=== PATIENT | female | born 1980 | race Caucasian/White ===

== ENCOUNTER → 2016-03-13 | Outpatient (CLI) | payer OTHER ==
[~2016-03-13] MED LIST: ACET-1256 PO; ATEN50TA8 PO; CHOL20009 PO; HYDR-5688 PO; LORA-741 PO; MISCCAP80 PO; PRLSR20 PO; SERT50TA PO
[2016-03-13 12:15] LABS: BASO % 0.6 %; BASO ABS # 0.07 K/uL (0-0.2); COMPLETE YES; EOS % 4.9 %; HEMATOCRIT 39.6 % (37-47); IG% 0.4 %; LYMPH % 30.3 %; LYMPH ABS # 3.55 K/uL (1.2-3.4); MEAN CORPUSCULAR HGB CONC 32.6 g/dl (32-36); MEAN PLATELET VOLUME 9.5 fL (7.4-10.4); MONO % 8.6 %; NEUT % 55.2 %; PLATELET COUNT 402 K/uL (130-400); RED BLOOD COUNT 4.77 M/uL (4.2-5.4); WHITE BLOOD COUNT 11.72 K/uL (4.8-10.8)
[2016-03-13 13:42] LABS: ALKALINE PHOSPHATASE 91 U/L (45-117); ALT/SGPT 33 U/L (12-78); AST/SGOT 11 U/L (15-37); BLOOD UREA NITROGEN 12 mg/dl (7-18); BUN/CREATININE RATIO 18.6 (10-20); CALCIUM 9.4 mg/dl (8.5-10.1); CARBON DIOXIDE 26 mmol/L (21-32); CHLORIDE 104 mmol/L (98-107); CREATININE 0.66 mg/dl (0.60-1.20); FERRITIN 25.1 ng/ml (8.0-388.0); GLUCOSE 85 mg/dl (70-99); POTASSIUM 4.4 mmol/L (3.5-5.1); SODIUM 138 mmol/L (136-145); TOTAL IRON BINDING CAPACITY 377 mcg/dl (250-450)
== END | disposition home or self-care (01) ==
LOC: C.LABPVFM 10:29
PROVIDERS: ATTEND Nurse Practitioner
DX: C18.2 Malignant neoplasm of ascending colon (principal)

== ENCOUNTER → 2016-04-10 | Outpatient (CLI) | payer OTHER ==
[2016-04-10 13:44] LABS: ESTIMATED AVERAGE GLUCOSE 105 mg/dl; HA1C FLAG Normal (Normal)
[2016-04-10 13:45] LABS: LYME DISEASE AB IGG NEG (NEG)
[2016-04-10 13:46] LABS: LYME DISEASE AB IGM NEG (NEG)
[2016-04-11 15:50] LABS: ALBUMIN 4.4 G/DL (3.8-4.8); GAMMA GLOBULIN 0.9 G/DL (0.8-1.7); IMMUNOFIXATION IGA SERUM 257 MG/DL (81-463); IMMUNOFIXATION IGG SERUM 912 MG/DL (694-1618); IMMUNOFIXATION IGM SERUM 203 MG/DL (48-271); TOTAL PROTEIN 7.3 G/DL (6.2-8.3)
[2016-04-12 17:35] LABS: COLLECTION SAMPLE Venous; LEAD BLOOD <1 mcg/dL (<5)
== END | disposition home or self-care (01) ==
LOC: C.LABPVFM 09:42
PROVIDERS: ATTEND Psychiatry & Neurology Neurology
DX: R53.83 Other fatigue (principal); R41.3 Other amnesia; G62.9 Polyneuropathy, unspecified

== ENCOUNTER → 2016-04-21 | Outpatient (CLI) | payer OTHER ==
[~2016-04-21] MED LIST changes: +GADAVIST IV PRN
--- NOTE | 2016-04-21 10:25 | DIAGNOSTIC IMAGING REPORT ---
MRI OF THE BRAIN WITHOUT AND WITH IV CONTRAST CLINICAL HISTORY: Facial pain, memory loss, fatigue, headaches, history of colon carcinoma. COMPARISON STUDY: No previous studies for comparison. TECHNIQUE: MRI of the brain was performed from the vertex to the skull base utilizing various T1 and T2 weighted sequences. Following the IV administration of 10 mL of Gadavist contrast, additional enhanced images were obtained. FINDINGS: Sagittal T1, axial diffusion, proton density and T2 weighted axial, coronal FLAIR, and pre and post axial T1-weighted images were acquired. These were supplemented with post gadolinium coronal T1 weighted images. The trigeminal protocol was utilized. 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 Axial diffusion-weighted images reveal no evidence of acute or subacute infarction. There is no evidence of ventricular dilatation. Proton density T2-weighted and FLAIR images reveal no significant intraparenchymal signal abnormalities. There are no abnormal flow voids. There is no evidence of pathologic enhancement. No trigeminal nerve lesions are visualized. IMPRESSION: 1 cm pineal cyst. Otherwise unremarkable MRI of the brain. Electronically signed by: Vj Jason M.D. 04/21/2016 10:24 AM Dictated Date/Time: 04/21/2016 10:12 AM
== END | disposition home or self-care (01) ==
LOC: C.MRIBC 09:03
PROVIDERS: ATTEND Psychiatry & Neurology Neurology
DX: G62.9 Polyneuropathy, unspecified (principal); R51 Headache; E34.8 Other specified endocrine disorders

== ENCOUNTER → 2016-05-11 | Outpatient (CLI) | payer OTHER ==
[~2016-05-11] MED LIST changes: -GADAVIST IV PRN; +OPTIRAY 320 IV PRN
--- NOTE | 2016-05-11 14:06 | DIAGNOSTIC IMAGING REPORT ---
CT OF THE CHEST WITH IV CONTRAST CLINICAL HISTORY: COLON CA COMPARISON STUDY: 09/08/2015 TECHNIQUE: Following the IV administration of 93 mL of Optiray-320, CT of the thorax was performed from the thoracic inlet to the lung bases. Images are reviewed in the axial, sagittal, and coronal planes. IV contrast was administered without complication. CT DOSE: 1652.86 mGycm FINDINGS: Thyroid: Imaged portions of the thyroid gland are normal in appearance. Thoracic aorta: The thoracic aorta is normal in course and caliber, noting standard 3-vessel arch anatomy. No aneurysm or dissection is seen. Pulmonary vasculature: The pulmonary trunk is normal in caliber. There are no central filling defects identified to suggest pulmonary embolus. Note that this examination was not protocoled for the evaluation of pulmonary emboli. HEART: The heart is normal in size and configuration, without pericardial effusion. Lungs and pleural spaces: There are no pleural effusions. There is no focal pulmonary consolidation. There is a stable 2 mm right upper lobe pulmonary nodule as visualized in image #[id number]. There is a stable 2 mm left apical pulmonary nodule as visualized in image #[id number]. Mediastinum: There is no mediastinal lymphadenopathy. April: Clear. Axilla: There is no evidence of pathologic axillary lymphadenopathy Upper abdomen: There is hepatic steatosis Skeletal structures: There are no lytic or blastic osseous lesions. IMPRESSION: 1. No evidence of intrathoracic metastatic disease 2. Hepatic steatosis 3. Stable 2 mm right upper lobe and left upper lobe pulmonary nodules. These are in all likelihood benign Electronically signed by: Vj Jason M.D. 05/11/2016 2:05 PM Dictated Date/Time: 05/11/2016 2:01 PM
--- NOTE | 2016-05-11 14:25 | DIAGNOSTIC IMAGING REPORT ---
CT ABD/PELVIS IV AND ORAL CONT CLINICAL HISTORY: COLON CA COMPARISON STUDY: 09/08/2015 TECHNIQUE: Following the IV administration of 93 mL of Optiray-320, CT scan of the abdomen and pelvis was performed from the lung bases to the proximal femurs. Images are reviewed in the axial, sagittal, and coronal planes. IV contrast was administered without complication. CT DOSE: FINDINGS: Lower chest: The heart is normal in size and configuration, without pericardial effusion. The lung bases and pleural spaces are clear. Liver: There is hepatic steatosis. No focal masses are visualized. The portal vein appears patent. Gallbladder: Unremarkable. Spleen: Normal in size and attenuation. Pancreas: Unremarkable. Adrenal glands: Unremarkable. Kidneys: There is symmetric renal cortical enhancement. The kidneys are normal in size without hydronephrosis. Bowel: There are no transition zones indicate bowel obstruction. No acute inflammatory changes are visualized. There are postsurgical changes of a right hemicolectomy. Peritoneum: There is no intraperitoneal free air or abdominal ascites. Vasculature: The abdominal aorta is normal in course and caliber. Adenopathy: None. Pelvic viscera: The bladder, and pelvic viscera are unremarkable. Skeletal structures: No destructive osseous lesions are seen. IMPRESSION: 1. No evidence of metastatic disease in the abdomen or pelvis 2. Postsurgical changes 3. Hepatic steatosis Electronically signed by: Vj Jason M.D. 05/11/2016 2:24 PM Dictated Date/Time: 05/11/2016 1:45 PM
== END | disposition home or self-care (01) ==
LOC: C.CTS 12:50
PROVIDERS: ATTEND Nurse Practitioner Family
DX: C18.2 Malignant neoplasm of ascending colon (principal); D50.9 Iron deficiency anemia, unspecified

== ENCOUNTER → 2016-05-16 | Outpatient (CLI) | payer OTHER ==
[~2016-05-16] MED LIST changes: -OPTIRAY 320 IV PRN; +SERT-234 PO
== END | disposition home or self-care (01) ==
LOC: C.LABPVFM 07:40
PROVIDERS: ATTEND Nurse Practitioner
DX: R19.7 Diarrhea, unspecified (principal); A04.7 Enterocolitis due to Clostridium difficile

== ENCOUNTER → 2016-06-09 | Day surgery (SDC) | payer OTHER ==
[2016-05-31 09:07] VITALS: Ht 165.1 cm; Wt 106.8 kg
[~2016-06-09] VITALS: Ht 165.1 cm; Wt 106.8 kg
[~2016-06-09] MED LIST changes: +ATROPINE SULFATE 0.1 MG/ML 5ML SYR IV PRN; +CLINDAMYCIN PHOS 150 MG/ML 2 ML VIAL IV SCH; +EpHEDrine SULFATE INJ 50 MG/ML AMP IV PRN; +FENTANYL CITRATE INJ 50 MCG/1 ML 2 ML VIAL IV PRN; +FENTANYL CITRATE INJ 50 MCG/1 ML 2 ML VIAL ONE; +HYDROCODONE/ACETAMOPHEN 5/325MG TAB PO PRN; +IBUPROFEN 600 MG TAB PO PRN; +LACTATED RINGER'S 1000ML 1,000 ML IV SCH; +LIDOCAINE HCL 1% 20 ML VIAL ONE; +LIDOCAINE HCL 2% 2 ML VIAL (20MG/ML) ONE; +MIDAZOLAM HCL 1 MG/ML 2ML VIAL ONE; +ONDANSETRON INJ 2 MG/ML 2 ML VIAL IV PRN; +ONDANSETRON INJ 2 MG/ML 2 ML VIAL ONE; +PROPOFOL IV EMULSION 10 MG/ML 20 ML VIAL IV ONE; +SODIUM CHLORIDE 0.9% 1000ML 1,000 ML IV SCH
--- NOTE | 2016-06-09 08:41 | History & Physical Bridge - SC ---
H&P Re-Evaluation Bridge Note: I have examined the patient, reviewed the History & Physical and in the interval since the performance of the History & Physical I have noted the following changes of clinical significance: No changes noted
--- NOTE | 2016-06-09 08:44 | Discharge Instructions-SurgCtr ---
Discharge Instructions Date of Service Jun 09, 2016. Visit Reason for Visit: Port Catheter In Place, History Of Colon Cancer Discharge Discharge Diagnosis / Problem: port removal Discharge Goals Goal(s): Decrease discomfort, Improve function Activity Recommendations Activity Limitations: as noted below Lifting Limitations: gradually increase as tolerated Exercise/Sports Limitations: until after follow-up appointment May Resume Sexual Activity: when tolerated Shower/Bathe: tomorrow Driving or Machine Use: resume 1 day after discharge SPECIAL CARE INSTRUCTIONS: * Cover incisions and change daily for comfort/drainage. * May use ibuprofen for pain as tolerated. * Expect some swelling and bruising. Call your doctor if: * Temperature above 101 degrees * Pain not relieved by pain medicine ordered * There is increased drainage or redness from any incision * You have any unanswered questions or concerns [phone]. FOLLOW UP VISIT: If not already scheduled, please call the office for a follow-up visit. for 2 weeks- sutures to be removed OFFICE PHONE NUMBER: Dr. Bocanegra Office Anesthesia . Post Anesthesia Instructions: If you have had General Anesthesia or IV Sedation: * Do not drive today. * Resume driving when surgeon permits. * Do not make important decisions or sign legal documents today. * Call surgeon for: 1. Temperature elevations greater than 101 degrees F. 2. Uncontrollable pain. 3. Excessive bleeding. 4. Persistent nausea and vomiting. 5. Medication intolerance (nausea, vomiting or rash). * For nausea and vomiting use only clear liquids such as: tea, soda, bouillon until nausea subsides, then gradually increase diet as tolerated. * If you have any concerns or questions, call your surgeon's office. If physician is unavailable and it is an emergency, call 911 or go to the nearest emergency room. . Diet Recommendations Home Diet: resume previous diet Pending Studies Studies pending at discharge: no Medical Emergencies . Who to Call and When: Medical Emergencies: If at any time you feel your situation is an emergency, please call 911 immediately. . Non-Emergent Contact Non-Emergency issues call your: Primary Care Provider, Surgeon . . "Provider Documentation" section prepared by Osbaldo Bocanegra. .
--- NOTE | 2016-06-09 09:11 | [facility] Post Operative Brief Note ---
Immediate Operative Summary Operative Date Jun 09, 2016. Pre-Operative Diagnosis History of Colon Cancer Post-Operative Diagnosis Same Procedure(s) Performed Removal Of A-Port Surgeon Dr. Bocanegra [employer] Surgeon(s) None Estimated Blood Loss 10 ml Findings port Specimens A.) Explanted A-Port Anesthesia local/ sedation Complication(s) None Disposition Recovery Room / PACU
--- NOTE | 2016-06-09 09:30 | OPERATIVE REPORT ---
DATE OF OPERATION: 06/09/2016 NAME OF OPERATION: Port removal. PREOPERATIVE DIAGNOSIS: History of colon cancer with port in place. POSTOPERATIVE DIAGNOSIS: Same. STAFF SURGEON: Dr. Bocanegra. ANESTHESIA: 1% plain lidocaine with sedation. DESCRIPTION OF PROCEDURE: The patient was brought in the operating room and placed on the operating table in supine position. Her left chest was prepped and draped in usual fashion. A 1% plain lidocaine was used to anesthetize the skin and subcutaneous tissue on the left chest area at the site of her previous scar. Incision then made carrying dissection down identifying the port, dissecting the port from surrounding tissue and oversewn the tunnel using 2-0 chromic catgut suture. The deep tissue was then reapproximated using 2-0 chromic catgut suture and then the skin reapproximated using 4-0 nylon suture. Dressing applied and the patient transferred to recovery room in stable condition. I attest to the content of the Intraoperative Record and any orders documented therein. Any exceptio ns are noted below.
[2016-06-09 10:07] VITALS: BP 106/69; PULSE 64; TEMP 36.7; O2SAT 99
--- NOTE | 2016-06-09 10:11 | Anesthesia Progress Nt - [facility] ---
Anesthesia Post Op Note Date & Time Jun 09, 2016 at 10:11 Vital Signs Pain Intensity: 0 Vital Signs Past 12 Hours Date Time Temp Pulse Resp B/P Pulse Ox O2 Delivery O2 Flow Rate FiO2 06/09/16 09:49 70 18 101/64 96 Room Air 06/09/16 09:43 70 24 06/09/16 09:43 72 24 95 06/09/16 09:42 68 23 96 06/09/16 09:42 69 23 06/09/16 09:41 37.2 96 Room Air 06/09/16 09:39 120/73 06/09/16 09:37 75 27 97 06/09/16 09:37 76 27 06/09/16 09:35 112/62 06/09/16 09:32 88 20 96 06/09/16 09:32 87 20 06/09/16 09:31 83 23 98 06/09/16 09:31 82 23 06/09/16 09:29 133/68 06/09/16 09:26 83 23 06/09/16 09:26 83 23 97 06/09/16 09:25 73 24 98 06/09/16 09:25 74 24 06/09/16 09:25 73 24 98 06/09/16 09:25 74 24 06/09/16 09:24 113/67 06/09/16 09:24 113/67 06/09/16 09:20 76 23 94 06/09/16 09:20 76 23 06/09/16 09:20 76 23 94 06/09/16 09:20 76 23 06/09/16 09:19 73 26 110/69 95 06/09/16 09:19 73 26 06/09/16 09:14 81 22 06/09/16 09:14 83 22 107/65 92 06/09/16 09:14 37.0 84 12 117/65 92 Mask 7 06/09/16 07:37 37.4 73 18 128/83 97 Room Air Notes Mental Status: alert / awake / arousable, participated in evaluation Pt Amnestic to Procedure: Yes Nausea / Vomiting: adequately controlled Pain: adequately controlled Airway Patency, RR, SpO2: stable & adequate BP & HR: stable & adequate Hydration State: stable & adequate Anesthetic Complications: no major complications apparent
== END | disposition home or self-care (01) ==
LOC: X.SURG 07:28
PROVIDERS: ATTEND Surgery
DX: Z45.2 Encounter for adjustment and management of vascular access device (principal); Z85.038 Personal history of other malignant neoplasm of large intestine; D64.9 Anemia, unspecified; F41.8 Other specified anxiety disorders; K21.9 Gastro-esophageal reflux disease without esophagitis; I47.1 Supraventricular tachycardia; G62.9 Polyneuropathy, unspecified; M13.0 Polyarthritis, unspecified; I07.1 Rheumatic tricuspid insufficiency; E55.9 Vitamin D deficiency, unspecified; Z82.49 Family history of ischemic heart disease and other diseases of the circulatory system; Z87.891 Personal history of nicotine dependence; Z79.899 Other long term (current) drug therapy

== ENCOUNTER → 2016-07-04 | Outpatient (CLI) | payer OTHER ==
[~2016-07-04] MED LIST changes: -ATROPINE SULFATE 0.1 MG/ML 5ML SYR IV PRN; -CLINDAMYCIN PHOS 150 MG/ML 2 ML VIAL IV SCH; -EpHEDrine SULFATE INJ 50 MG/ML AMP IV PRN; -FENTANYL CITRATE INJ 50 MCG/1 ML 2 ML VIAL IV PRN; -FENTANYL CITRATE INJ 50 MCG/1 ML 2 ML VIAL ONE; -HYDROCODONE/ACETAMOPHEN 5/325MG TAB PO PRN; -IBUPROFEN 600 MG TAB PO PRN; -LACTATED RINGER'S 1000ML 1,000 ML IV SCH; -LIDOCAINE HCL 1% 20 ML VIAL ONE; -LIDOCAINE HCL 2% 2 ML VIAL (20MG/ML) ONE; -MIDAZOLAM HCL 1 MG/ML 2ML VIAL ONE; -ONDANSETRON INJ 2 MG/ML 2 ML VIAL IV PRN; -ONDANSETRON INJ 2 MG/ML 2 ML VIAL ONE; -PROPOFOL IV EMULSION 10 MG/ML 20 ML VIAL IV ONE; -SODIUM CHLORIDE 0.9% 1000ML 1,000 ML IV SCH
== END | disposition home or self-care (01) ==
LOC: C.LABPVFM 14:50
PROVIDERS: ATTEND Nurse Practitioner
DX: E55.9 Vitamin D deficiency, unspecified (principal); G62.0 Drug-induced polyneuropathy

== ENCOUNTER → 2016-08-29 | Outpatient (CLI) | payer OTHER ==
[2016-08-29 12:20] LABS: BASO % 0.4 %; BASO ABS # 0.05 K/uL (0-0.2); EOS % 2.8 %; HEMATOCRIT 40.9 % (37-47); IG% 0.3 %; MEAN CELL VOLUME 84.3 fL (80-100); MEAN CORPUSCULAR HEMOGLOBIN 28.2 pg (25-34); MEAN CORPUSCULAR HGB CONC 33.5 g/dl (32-36); MEAN PLATELET VOLUME 9.1 fL (7.4-10.4); MONO % 7.1 %; NEUT % 64.4 %; PLATELET COUNT 433 K/uL (130-400); RED BLOOD COUNT 4.85 M/uL (4.2-5.4); WHITE BLOOD COUNT 11.62 K/uL (4.8-10.8)
[2016-08-29 12:21] LABS: COMPLETE YES
[2016-08-29 13:07] LABS: ALT/SGPT 56 U/L (12-78); AST/SGOT 33 U/L (15-37); BLOOD UREA NITROGEN 10 mg/dl (7-18); BUN/CREATININE RATIO 12.9 (10-20); CALCIUM 9.3 mg/dl (8.5-10.1); CARBON DIOXIDE 25 mmol/L (21-32); CHLORIDE 108 mmol/L (98-107); CREATININE 0.77 mg/dl (0.60-1.20); GLUCOSE 91 mg/dl (70-99); POTASSIUM 4.2 mmol/L (3.5-5.1); SODIUM 138 mmol/L (136-145)
[2016-08-29 13:17] LABS: ALB/GLOB RATIO 0.9 (0.9-2); ALKALINE PHOSPHATASE 73 U/L (45-117); RHEUMATOID FACTOR < 10.0 U/mL (0-15)
[2016-08-29 13:46] LABS: LYME DISEASE AB IGG NEG (NEG)
[2016-08-29 13:49] LABS: LYME DISEASE AB IGM NEG (NEG)
== END | disposition home or self-care (01) ==
LOC: C.LABPVFM 09:32
PROVIDERS: ATTEND Nurse Practitioner
DX: R53.83 Other fatigue (principal); R41.3 Other amnesia; R76.8 Other specified abnormal immunological findings in serum; M25.50 Pain in unspecified joint; R00.2 Palpitations

== ENCOUNTER → 2016-09-05 | Outpatient (CLI) | payer OTHER ==
[2016-09-05 13:08] LABS: BASO % 0.7 %; BASO ABS # 0.09 K/uL (0-0.2); COMPLETE YES; EOS % 3.6 %; HEMATOCRIT 39.6 % (37-47); IG% 0.5 %; LYMPH % 30.6 %; LYMPH ABS # 4.12 K/uL (1.2-3.4); MEAN CORPUSCULAR HEMOGLOBIN 27.9 pg (25-34); MEAN CORPUSCULAR HGB CONC 32.8 g/dl (32-36); MEAN PLATELET VOLUME 9.3 fL (7.4-10.4); MONO % 6.5 %; NEUT % 58.1 %; PLATELET COUNT 391 K/uL (130-400); RED BLOOD COUNT 4.66 M/uL (4.2-5.4); WHITE BLOOD COUNT 13.48 K/uL (4.8-10.8)
[2016-09-05 15:05] LABS: URINE APPEARANCE CLEAR (CLEAR); URINE BILIRUBIN NEG (NEG); URINE COLOR YELLOW; URINE EPITHELIAL CELL AUTO 20-30 /lpf (0-5); URINE NITRITE NEG (NEG); URINE PH 5.5 (4.5-7.5); URINE SPECIFIC GRAVITY 1.019 (1.000-1.030); UROBILINOGEN NEG (NEG)
[2016-09-05 15:08] LABS: MANUAL MICROSCOPIC REQUIRED? NO; REVIEW REQ? NO
[2016-09-12 04:32] LABS: ANTI-CENTROMERE AB <1.0 NEG AI (<1.0 NEG); ANTI-SS-A <1.0 NEG AI (<1.0 NEG); ANTI-SS-B <1.0 NEG AI (<1.0 NEG); DNA ds CRITHIDIA NEGATIVE (NEGATIVE); Sm Antibody <1.0 NEG AI (<1.0 NEG)
== END | disposition home or self-care (01) ==
LOC: C.LAB1850 11:43
PROVIDERS: ATTEND Internal Medicine Rheumatology
DX: R53.83 Other fatigue (principal); R76.8 Other specified abnormal immunological findings in serum; M25.50 Pain in unspecified joint

== ENCOUNTER → 2016-10-23 | Outpatient (CLI) | payer OTHER ==
[2016-10-23 12:17] LABS: BASO % 0.7 %; COMPLETE YES; EOS % 2.7 %; HEMATOCRIT 41.7 % (37-47); IG% 0.3 %; LYMPH % 27.8 %; LYMPH ABS # 3.76 K/uL (1.2-3.4); MEAN CELL VOLUME 85.3 fL (80-100); MEAN CORPUSCULAR HEMOGLOBIN 27.4 pg (25-34); MEAN CORPUSCULAR HGB CONC 32.1 g/dl (32-36); MEAN PLATELET VOLUME 9.7 fL (7.4-10.4); MONO % 8.1 %; NEUT % 60.4 %; PLATELET COUNT 421 K/uL (130-400); RED BLOOD COUNT 4.89 M/uL (4.2-5.4); WHITE BLOOD COUNT 13.52 K/uL (4.8-10.8)
[2016-10-23 13:04] LABS: ALT/SGPT 33 U/L (12-78); AST/SGOT 20 U/L (15-37); BLOOD UREA NITROGEN 13 mg/dl (7-18); BUN/CREATININE RATIO 19.7 (10-20); CALCIUM 9.1 mg/dl (8.5-10.1); CARBON DIOXIDE 29 mmol/L (21-32); CHLORIDE 106 mmol/L (98-107); CREATININE 0.65 mg/dl (0.60-1.20); GLUCOSE 82 mg/dl (70-99); POTASSIUM 4.2 mmol/L (3.5-5.1); SODIUM 139 mmol/L (136-145)
[2016-10-23 13:07] LABS: ALB/GLOB RATIO 1.1 (0.9-2); ALKALINE PHOSPHATASE 87 U/L (45-117)
== END | disposition home or self-care (01) ==
LOC: C.LABPVFM 09:20
PROVIDERS: ATTEND Nurse Practitioner Family
DX: C18.2 Malignant neoplasm of ascending colon (principal)

== ENCOUNTER 2016-11-21 13:59 | Emergency (ER) | payer OTHER ==
[~2016-11-21] VITALS: Ht 165.1 cm; Wt 113.9 kg
[~2016-11-21 13:59] MED LIST changes: -SERT-234 PO
[2016-11-21 14:02] VITALS: TEMP 36.7; Ht 165.1 cm; Wt 113.9 kg
[2016-11-21] MEDS ORDERED: SERT-234 PO (14:42)
[2016-11-21 15:44] LABS: ISTAT CREATININE 0.7 mg/dl (0.6-1.3); ISTAT HEMOGLOBIN 12.9 g/dl (12.0-16.0); ISTAT IONIZED CALCIUM 1.18 mmol/l (1.12-1.32)
--- NOTE | 2016-11-21 15:48 | EMERGENCY ROOM VISIT NOTE ---
ED Visit Note First contact with patient: 14:05 CHIEF COMPLAINT: Head injury, dizziness, nausea HISTORY OF PRESENT ILLNESS: This is a 36 year-old female patient presented to the emergency department 2 days after receiving a head injury when she slipped while mopping the floor. The patient states she fell backwards and hit the posterior aspect of her head and neck on a hot water heater. The patient states she was feeling well yesterday, however today she is having worsening dizziness and nausea. She states her symptoms did improve after she ate today. There was a possible brief loss of consciousness, but the episode was unwitnessed and the patient is uncertain if she passed out or not. There has been no vomiting. The patient denies vomiting, confusion, persistent headache, visual disturbances, or other associated symptoms. The patient complains of no neck pain. The patient has taken nothing for the pain. The patient rates the pain as 8/10 and dull. The patient denies bowel or bladder dysfunction. The patient denies any other injuries. REVIEW OF SYSTEMS: A 10 system review of systems was performed with positives and pertinent negatives listed in the history of present illness. All other systems were reviewed and are negative. ALLERGIES: Please see list. MEDICATIONS: Please see list. I did personally review the patient's medication list the bedside. PMH: Anxiety, SVT, GERD SOCIAL HISTORY: The patient lives locally with family. She denies drug, alcohol use. The patient does report smoking cigarettes. PHYSICAL EXAM: Vital Signs: Reviewed Nurse's notes, vital signs stable. GENERAL : This is a 36-year-old white female, in no acute distress, well-developed, well -nourished. NEURO: The patient is alert, oriented to person place and time, and coherent. Normal mini mental status exam. Negative Romberg and pronator drift. Cerebellar function intact. HEAD: Normocephalic, atraumatic. No tenderness or abnormality noted on palpation. EYES: Pupils are equal round and reactive to light and accommodation. EOMs are full and optic discs and fundi are normal. There is no swelling or discoloration of the tissue surrounding the eyes. EARS: External auditory canals clear without blood. NOSE: Patent without tenderness. No septal hematoma. FACE: No facial bone tenderness. NECK: Supple. There is no cervical spine tenderness. The patient does not have tenderness with movement of the neck. ED COURSE: I examined the patient. Discussion with the patient regarding possible CT scan versus no imaging. The patient feels comfortable with no imaging based on the CHIP criteria for head injury imaging. She states she has been feeling dizzy and does have a history of blood disorder, so we did discuss ordering lab work to ensure the patient is not significantly anemic or have significant electrolyte abnormalities. CT of his were completed and were reviewed by myself. These were without significant change. The patient was discharged home in good condition ambulatory. DIFFERENTIAL DIAGNOSIS: Closed head injury, concussion, dizziness, electrolyte abnormality, hypotension, anemia, malignancy, and others DIAGNOSIS: Concussion Problem List Medical Problems: (1) SVT (supraventricular tachycardia) Status: Chronic Current/Historical Medications Scheduled Atenolol (Tenormin), 25 MG PO HS Cholecalciferol (Vitamin D), 1 TAB PO QAM Omeprazole (Prilosec), 20 MG PO QAM Sertraline (Zoloft), 100 MG PO DAILY Scheduled PRN Acetaminophen (Tylenol), 1,000 MG PO Q6H PRN for Pain Lorazepam (Ativan), 0.5 MG PO BID PRN for Anxiety/Insomnia Allergies Coded Allergies: Erythromycin (Verified Allergy, Severe, SHORTNESS OF BREATH, 11/21/16) patient got nauseous and had some sob Neomycin (Verified Allergy, Severe, SHORTNESS OF BREATH & CHEST PAIN, 11/28) Cephalosporins (Verified Allergy, Intermediate, -HIVES, 11/21/16) Penicillins (Verified Allergy, Intermediate, HIVES AND VOMITING, 11/21/16) Latex1 -Allergic Contact Dermititis (Verified Allergy, Mild, HIVES/ITCHING , 11/21/16) Antihistamines, Loratadine-type (Verified Adverse Reaction, Intermediate, ALL ANTIHISTAMINES MAKE TACHYCARDIAC R/T SVT, 11/21/16) Aspirin (Verified Adverse Reaction, Intermediate, HEART RACES, 11/21/16) Vital Signs Date Time Temp Pulse Resp B/P (MAP) Pulse Ox O2 Delivery O2 Flow Rate FiO2 11/21/16 14:02 36.7 74 18 130/83 97 Room Air Laboratory Results Test 11/21/16 15:24 Bedside Hemoglobin 12.9 g/dl (12.0-16.0) Bedside Hematocrit 38 % (37-47) Bedside Sodium 138 mEq/L (135-144) Bedside Potassium 4.5 mEq/L (3.3-5.0) Bedside Chloride 104 mEq/L (101-112) Bedside Total CO2 25 mEq/l (24-31) Anion Gap 15.0 mmol/L (16-25) Bedside Blood Urea Nitrogen 9 mg/dl (7-18) Bedside Creatinine 0.7 mg/dl (0.6-1.3) Bedside Glucose (other) 95 mg/dl (70-99) Bedside Ionized Calcium (Juno) 1.18 mmol/l (1.12-1.32) Departure Information Impression Primary Impression: Concussion Dispostion Home / Self-Care Condition GOOD Referrals Esmer Mason C.R.N.P (PCP) Patient Instructions ED Concussion, My [facility] Additional Instructions You have been treated in the Emergency Department for a Closed Head Injury. For pain control, you can use the following [id number] medicines (if >12 yo): Ibuprofen(Motrin, Advil) may be used for fever or pain. Use 600mg every six hours as needed. Take with food. Avoid using more than 2400mg in a 24 hour period. Do not use 2400mg per day for more than three consecutive days without physician direction. Prolonged inappropriate use can lead to stomach upset or ulcers. (AND/OR) Acetaminophen(Tylenol) may be used for fever or pain. Use 1000mg every six hours as needed. Avoid using more than 3000mg in a 24 hour period. You should relax in a quiet, dark place for the rest of the day. Avoid any possible triggers including: cigarette smoke, caffeine, nicotine, chocolate, wine, beer, loud noises or music, or bright lights. You should schedule a follow-up appointment in 2-3 days with your Primary Care Provider or established Neurologist for further evaluation and treatment of your Headache. Return to the Emergency Department if your current symptoms worsen despite treatment course outlined above, or if you develop any of the following symptoms : intractable pain despite aforementioned treatment course, visual disturbances , loss of vision, unilateral weakness or facial drooping, slurring of speech, loss of coordination, or loss of consciousness. Problem Qualifiers Primary Impression: Concussion Encounter type: initial encounter Loss of consciousness presence/duration: with LOC of 30 min or less Qualified Codes: S06.0X1A - Concussion with loss of consciousness of 30 minutes or less, initial encounter
[2016-11-21 15:57] VITALS: BP 155/95; PULSE 70; O2SAT 96
== END 2016-11-21 15:58 | disposition home or self-care (01) ==
LOC: C.EDB 14:01 → C.EDD 15:58
DX: S06.0X9A Concussion with loss of consciousness of unspecified duration, initial encounter (principal); W22.09XA Striking against other stationary object, initial encounter; Y93.E5 Activity, floor mopping and cleaning; I47.1 Supraventricular tachycardia; F17.210 Nicotine dependence, cigarettes, uncomplicated

== ENCOUNTER → 2017-02-01 | Day surgery (SDC) | payer OTHER ==
[2017-01-23 10:07] VITALS: Ht 165.1 cm; Wt 116.4 kg
[~2017-02-01] VITALS: Ht 165.1 cm; Wt 116.4 kg
[~2017-02-01] MED LIST changes: +ATV/1 PO; +CYAN100020 PO; -HYDR-5688 PO; +LIDOCAINE HCL 2% 2 ML VIAL (20MG/ML) ONE; -LORA-741 PO; -MISCCAP80 PO; +PROPOFOL IV EMULSION 10 MG/ML 20 ML VIAL IV ONE; +PSYL0.524 PO; +SERT-234 PO; -SERT50TA PO; +SODIUM CHLORIDE 0.9% 500ML 500 ML IV ONE; +TURM1CAP4 PO
--- NOTE | 2017-02-01 13:39 | Endo History and Physical ---
History & Physical Date of Service: Feb 01, 2017. Chief Complaint: History of Colon cancer Referring Physician: Oziel History of Present Illness 36 yo CF who presents for colonoscopy secondary to history of colon cancer. Past Medical History Arthritis, Anxiety, Reflux, Cancer Past Surgical History Hx Cardiac Surgery: Yes (CARDIOVERSION) Hx Internal Defibrillator: No Hx Pacemaker: No Hx Abdominal Surgery: Yes (TUBAL LIGATION) Hx of Implantable Prosthesis: No Hx Post-Op Nausea and Vomiting: No Hx Cancer Surgery: Yes (COLON RESECTION WITH APPY) Hx Thoracic Surgery: No Hx Orthopedic: No Hx Urinary Tract Surgery: No Family History Polyp, IBD Social History Smoking Status: Current Every Day Smoker Hx Substance Use: No Hx Alcohol Use: No Allergies Coded Allergies: Erythromycin (Verified Allergy, Severe, SHORTNESS OF BREATH, 01/23/17) patient got nauseous and had some sob Neomycin (Verified Allergy, Severe, SHORTNESS OF BREATH & CHEST PAIN, 01/28) Cephalosporins (Verified Allergy, Intermediate, -HIVES, 01/23/17) Penicillins (Verified Allergy, Intermediate, HIVES AND VOMITING, 01/23/17) Latex1 -Allergic Contact Dermititis (Verified Allergy, Mild, HIVES/ITCHING , 01/23/17) Antihistamines, Loratadine-type (Verified Adverse Reaction, Intermediate, ALL ANTIHISTAMINES MAKE TACHYCARDIAC R/T SVT, 01/23/17) Aspirin (Verified Adverse Reaction, Intermediate, HEART RACES, 01/23/17) Current Medications Reported Home Medications Medications Dose Route/Sig Max Daily Dose Days Date Category Metamucil (Psyllium) 0.52 Gm Cap 1 Cap PO BID 01/23/17 Reported Vitamin B12 (Cyanocobalamin) 1,000 Mcg Tab 1 Tab PO QAM 01/23/17 Reported Turmeric (Turmeric (Curcuma Longa)) 500 Mg Cap 1 Cap PO QAM 01/23/17 Reported Ativan (Lorazepam) 1 Mg Tab 1 Mg PO QAM 01/23/17 Reported Ativan (Lorazepam) 1 Mg Tab 0.5 Mg PO HS 01/23/17 Reported Zoloft (Sertraline HCl) 100 Mg Tab 150 Mg PO QAM 11/21/16 Reported Vitamin D (Cholecalciferol) 2,000 Unit Tab 1 Tab PO QAM 01/26/16 Reported Prilosec (Omeprazole) 20 Mg Capcr 20 Mg PO QAM 01/26/16 Reported Tylenol (Acetaminophen) 500 Mg Tab 1,000 Mg PO Q6H PRN 03/04/15 Reported Tenormin (Atenolol) 50 Mg Tab 25 Mg PO HS 11/12/14 Reported Vital Signs Weight (Kilograms): 116.36 Height (Feet): 5 Height (Inches): 5 Date Time Temp Pulse Resp B/P (MAP) Pulse Ox O2 Delivery O2 Flow Rate FiO2 02/01/17 13:04 37 67 20 128/65 (86) 97 Room Air Physical Exam General Appearance: WD/WN, no apparent distress Respiratory/Chest: Auscultation: breath sounds normal Cardiovascular: Heart Auscultation: RRR Abdomen: Bowel Sounds: normal Inspection & Palpation: soft, non-distended, no tenderness, guarding & rebound Assessment and Plan Assessment: 36 yo CF who presents for colonoscopy secondary to history of colon cancer. Plan: Proceed with colonoscopy.
--- NOTE | 2017-02-01 14:09 | GI REPORT ---
Procedure Date: 02/01/2017 1:46 PM Procedure: Colonoscopy Indications: High risk colon cancer surveillance: Personal history of colon cancer Medicines: Monitored Anesthesia Care Complications: No immediate complications. Estimated Blood Loss: Estimated blood loss: none. Procedure: Pre-Anesthesia Assessment: - Prior to the procedure, a History and Physical was performed, and patient medications and allergies were reviewed. The patient's tolerance of previous anesthesia was also reviewed. The risks and benefits of the procedure and the sedation options and risks were discussed with the patient. All questions were answered, and informed consent was obtained. Prior Anticoagulants: The patient has taken no previous anticoagulant or antiplatelet agents. ASA Grade Assessment: II - A patient with mild systemic disease. After reviewing the risks and benefits, the patient was deemed in satisfactory condition to undergo the procedure. After I obtained informed consent, the scope was passed under direct vision. Throughout the procedure, the patient's blood pressure, pulse, and oxygen saturations were monitored continuously. The scope was introduced through the anus and advanced to the terminal ileum. The colonoscopy was performed without difficulty. The patient tolerated the procedure well. The quality of the bowel preparation was good. The terminal ileum and the rectum were photographed. Findings: There was evidence of a prior end-to-side ileo-colonic anastomosis in the ascending colon. This was patent and was characterized by healthy appearing mucosa. The anastomosis was traversed. The perianal and digital rectal examinations were normal. Impression: - Patent end-to-side ileo-colonic anastomosis, characterized by healthy appearing mucosa. - No specimens collected. Recommendation: - Resume previous diet. - Continue present medications. - Repeat colonoscopy in 3 years for surveillance. - Return to primary care physician as previously scheduled. Shahriar Irizarry DO 02/01/2017 2:08:37 PM This report has been signed electronically. Note Initiated On: 02/01/2017 1:46 PM I attest to the content of the Intraoperative Record and orders documented therein, exceptions below
--- NOTE | 2017-02-01 14:11 | Discharge Instructions ---
Endoscopy Patient Instructions Date / Procedure(s) Performed Feb 01, 2017. Colonoscopy Allergy Information Coded Allergies: Erythromycin (Verified Allergy, Severe, SHORTNESS OF BREATH, 01/23/17) patient got nauseous and had some sob Neomycin (Verified Allergy, Severe, SHORTNESS OF BREATH & CHEST PAIN, 01/28) Cephalosporins (Verified Allergy, Intermediate, -HIVES, 01/23/17) Penicillins (Verified Allergy, Intermediate, HIVES AND VOMITING, 01/23/17) Latex1 -Allergic Contact Dermititis (Verified Allergy, Mild, HIVES/ITCHING , 01/23/17) Antihistamines, Loratadine-type (Verified Adverse Reaction, Intermediate, ALL ANTIHISTAMINES MAKE TACHYCARDIAC R/T SVT, 01/23/17) Aspirin (Verified Adverse Reaction, Intermediate, HEART RACES, 01/23/17) Discharge Date / Findings Feb 01, 2017. Normal colonoscopy Medication Instructions OK to resume all medications today as prescribed Reported Home Medications Medications Dose Route/Sig Max Daily Dose Days Date Category Metamucil (Psyllium) 0.52 Gm Cap 1 Cap PO BID 01/23/17 Reported Vitamin B12 (Cyanocobalamin) 1,000 Mcg Tab 1 Tab PO QAM 01/23/17 Reported Turmeric (Turmeric (Curcuma Longa)) 500 Mg Cap 1 Cap PO QAM 01/23/17 Reported Ativan (Lorazepam) 1 Mg Tab 1 Mg PO QAM 01/23/17 Reported Ativan (Lorazepam) 1 Mg Tab 0.5 Mg PO HS 01/23/17 Reported Zoloft (Sertraline HCl) 100 Mg Tab 150 Mg PO QAM 11/21/16 Reported Vitamin D (Cholecalciferol) 2,000 Unit Tab 1 Tab PO QAM 01/26/16 Reported Prilosec (Omeprazole) 20 Mg Capcr 20 Mg PO QAM 01/26/16 Reported Tylenol (Acetaminophen) 500 Mg Tab 1,000 Mg PO Q6H PRN 03/04/15 Reported Tenormin (Atenolol) 50 Mg Tab 25 Mg PO HS 11/12/14 Reported Provider Instructions Activity Restrictions - No exercising or heavy lifting for 24 hours. - Do not drink alcohol the day of the procedure. - Do not drive a car or operate machinery until the day after the procedure. - Do not make any important decisions or sign important papers in 24 hours after the procedure. Following Day: - Return to full activity which may include returning to work/school. Diet Start your diet with liquids and light foods (jello, soup, juice, toast). Then eat your usual diet if not nauseated. Treatment For Common After Affects For mild abdominal pain, bloating, or excessive gas: - Rest - Eat lightly - Lie on right side Follow-Up Information Follow-up with Oziel as scheduled Anesthesia Information What You Should Know You have had a procedure that required some medicine to reduce anxiety and discomfort. This treatment is called moderate sedation. After receiving the treatment, you may be sleepy, but you will be able to breathe on your own. The effects of the treatment may last for several hours. Follow these instructions along with Activity/Diet recommendations noted above: * Do NOT do anything where dizziness or clumsiness would be dangerous. * Rest quietly at home today, then you can be up and about tomorrow. * Have a responsible person stay with you the rest of today. * You may have had an I.V. today. If so, you may take the dressing off later today. Recommendations Call your doctor if: * Trouble breathing * Continuous vomiting for more than 24 hours * Temperature above 101 degrees * Severe abdominal pain or bloating * Pain not relieved by pain medicine ordered * There is increased drainage or redness from any incision * A large amount of rectal bleeding greater than 2-3 tablespoons. (If you had a polyp/s removed or have hemorrhoids, a small amount of blood - from the rectum is to be expected.) * You have any unanswered questions or concerns. IN THE EVENT OF A SERIOUS EMERGENCY, GO TO THE NEAREST EMERGENCY ROOM Your discharge instructions were prepared by provider Shahriar Irizarry. Patient Instructions Signature Page Mandy Duarte Patient (or Guardian) Signature/Date: I have read and understand the instructions given to me by my caregivers. Caregiver/RN/Doctor Signature/Date: The above-named patient and/or guardian has received patient instructions on this date. + Original Patient Signature Page (only) stays with chart. Please make copy for patient.
[2017-02-01 14:39] VITALS: BP 110/74; PULSE 65; O2SAT 99
--- NOTE | 2017-02-01 14:42 | Anesthesiology Progress Note ---
Anesthesia Post Op Note Date & Time Feb 01, 2017 at 14:42 Vital Signs Pain Intensity: 0 Vital Signs Past 12 Hours Date Time Temp Pulse Resp B/P (MAP) Pulse Ox O2 Delivery O2 Flow Rate FiO2 02/01/17 14:39 65 20 110/74 (86) 99 Room Air 02/01/17 14:22 64 20 112/77 (89) 98 Room Air 02/01/17 14:05 72 20 119/76 (90) 98 Room Air 02/01/17 13:04 37 67 20 128/65 (86) 97 Room Air Notes Mental Status: alert / awake / arousable, participated in evaluation Pt Amnestic to Procedure: Yes Nausea / Vomiting: adequately controlled Pain: adequately controlled Airway Patency, RR, SpO2: stable & adequate BP & HR: stable & adequate Hydration State: stable & adequate Anesthetic Complications: no major complications apparent
== END | disposition home or self-care (01) ==
LOC: C.GI 12:45
PROVIDERS: ATTEND Internal Medicine
DX: Z12.11 Encounter for screening for malignant neoplasm of colon (principal); Z85.038 Personal history of other malignant neoplasm of large intestine; Z98.0 Intestinal bypass and anastomosis status; I47.1 Supraventricular tachycardia; K21.9 Gastro-esophageal reflux disease without esophagitis; F41.9 Anxiety disorder, unspecified; F32.9 Major depressive disorder, single episode, unspecified; M19.90 Unspecified osteoarthritis, unspecified site; F17.200 Nicotine dependence, unspecified, uncomplicated; Z83.71 Family history of colonic polyps; Z83.79 Family history of other diseases of the digestive system; Z79.899 Other long term (current) drug therapy

== ENCOUNTER → 2017-02-07 | Outpatient (CLI) | payer OTHER ==
[~2017-02-07] MED LIST changes: -LIDOCAINE HCL 2% 2 ML VIAL (20MG/ML) ONE; +OPTIRAY 320 IV PRN; -PROPOFOL IV EMULSION 10 MG/ML 20 ML VIAL IV ONE; -SODIUM CHLORIDE 0.9% 500ML 500 ML IV ONE
--- NOTE | 2017-02-07 13:16 | DIAGNOSTIC IMAGING REPORT ---
ABD/PELVIS IV AND ORAL CONT CLINICAL HISTORY: 36 years-old Female presenting with C18.2, history of colon cancer, follow-up. TECHNIQUE: Multidetector CT of the abdomen and pelvis was performed after the administration of oral and intravenous contrast. IV contrast: 119 mL of Optiray 320. A dose lowering technique was used consistent with the principles of ALARA (as low as reasonably achievable). COMPARISON: 05/11/2016. CT DOSE (mGy.cm): The estimated cumulative dose is 1784.[address] chest. FINDINGS: Government Documents Librarian topogram: Unremarkable. Lung bases: Minimal emphysematous changes suggested. Lung bases otherwise clear. Normal heart size. No pericardial or pleural effusion. Liver: Normal morphology. No liver lesion. Patent hepatic vasculature. Biliary: No intrahepatic or extrahepatic biliary ductal dilatation. Normal gallbladder. Pancreas: Normal. Spleen: Normal. Adrenal glands: Normal. Kidneys and ureters: Normal. No hydronephrosis. Bladder: Normal. Pelvic organs: Uterus and ovaries normal. Bowel: Postsurgical changes of right hemicolectomy with a patent ileocolic anastomosis in the right abdomen. No recurrent mass lesion. No bowel obstruction. Peritoneal cavity: Trace free fluid in the pelvis. Lymph nodes: No enlarged lymph nodes in the abdomen or pelvis. Vasculature: Aorta and IVC patent and normal in caliber. Abdominal wall: Normal. Musculoskeletal: Normal. IMPRESSION: 1. Postsurgical changes of right hemicolectomy. No evidence of residual recurrent disease. No metastatic disease in abdomen or pelvis. No lymphadenopathy. Electronically signed by: Santy Vee M.D. 02/07/2017 1:15 PM Dictated Date/Time: 02/07/2017 1:08 PM
--- NOTE | 2017-02-07 13:24 | DIAGNOSTIC IMAGING REPORT ---
CHEST CT WITH CONTRAST CT DOSE: 1784.66 mGy.cm HISTORY: Colon cancer. TECHNIQUE: Multiaxial CT images of the chest were performed following the intravenous administration of contrast. A dose lowering technique was utilized adhering to the principles of ALARA. COMPARISON: Chest CT 05/11/2016. FINDINGS: The central airways are patent. Stable 2 mm nodule within the left lung apex on image 31 and within the right lower lobe on image 78. No new pulmonary nodules identified. No suspicious lytic or blastic osseous lesions. Hepatic steatosis. The visualized spleen and adrenal glands are unremarkable. No mediastinal or hilar lymphadenopathy. The heart is normal in size. The central pulmonary arteries are patent. Normal caliber thoracic aorta. Stable subcentimeter lymph node adjacent to the descending thoracic aorta on image 114. This measures 7 mm. Small scarlike density within the lingula, unchanged. IMPRESSION: 1. No change compared to the prior study. 2. No evidence for intrathoracic metastatic disease. 3. Hepatic steatosis. 4. Stable tiny pulmonary nodules as described above. Electronically signed by: Shad Sullivan M.D. 02/07/2017 1:23 PM Dictated Date/Time: 02/07/2017 1:11 PM
== END | disposition home or self-care (01) ==
LOC: C.CTS 12:22
PROVIDERS: ATTEND Nurse Practitioner Family
DX: C18.2 Malignant neoplasm of ascending colon (principal); Z90.49 Acquired absence of other specified parts of digestive tract

== ENCOUNTER → 2017-02-08 | Outpatient (CLI) | payer OTHER ==
[~2017-02-08] MED LIST changes: -OPTIRAY 320 IV PRN
[2017-02-08 12:38] LABS: BASO % 0.7 %; BASO ABS # 0.08 K/uL (0-0.2); COMPLETE YES; EOS % 3.5 %; HEMATOCRIT 38.5 % (37-47); IG% 0.4 %; LYMPH % 26.6 %; LYMPH ABS # 3.18 K/uL (1.2-3.4); MEAN CELL VOLUME 83.2 fL (80-100); MEAN CORPUSCULAR HEMOGLOBIN 27.9 pg (25-34); MEAN CORPUSCULAR HGB CONC 33.5 g/dl (32-36); MEAN PLATELET VOLUME 9.3 fL (7.4-10.4); MONO % 5.5 %; NEUT % 63.3 %; PLATELET COUNT 378 K/uL (130-400); RED BLOOD COUNT 4.63 M/uL (4.2-5.4); WHITE BLOOD COUNT 11.94 K/uL (4.8-10.8)
[2017-02-08 13:16] LABS: ALT/SGPT 38 U/L (12-78); AST/SGOT 22 U/L (15-37); BLOOD UREA NITROGEN 12 mg/dl (7-18); BUN/CREATININE RATIO 18.2 (10-20); CALCIUM 9.1 mg/dl (8.5-10.1); CARBON DIOXIDE 27 mmol/L (21-32); CHLORIDE 104 mmol/L (98-107); CREATININE 0.66 mg/dl (0.60-1.20); GLUCOSE 106 mg/dl (70-99); POTASSIUM 4.4 mmol/L (3.5-5.1); SODIUM 136 mmol/L (136-145)
[2017-02-08 13:18] LABS: ALKALINE PHOSPHATASE 80 U/L (45-117); FERRITIN 19.4 ng/ml (8.0-388.0); TOTAL IRON BINDING CAPACITY 407 mcg/dl (250-450)
== END | disposition home or self-care (01) ==
LOC: C.LABPVFM 11:08
PROVIDERS: ATTEND Nurse Practitioner Family
DX: C18.2 Malignant neoplasm of ascending colon (principal)

== ENCOUNTER → 2017-04-27 | Outpatient (CLI) | payer OTHER | END | disposition home or self-care (01) | LOC: C.LABPVFM 11:57 | PROVIDERS: ATTEND Nurse Practitioner | DX: R39.9 Unspecified symptoms and signs involving the genitourinary system (principal) ==

== ENCOUNTER → 2017-05-15 | Outpatient (CLI) | payer OTHER ==
[2017-05-15 13:26] LABS: BASO % 0.7 %; EOS % 3.4 %; EOS ABS # 0.46 K/uL (0-0.5); HEMATOCRIT 40.5 % (37-47); HEMOGLOBIN 13.1 g/dL (12.0-16.0); IG# 0.07 K/uL (0.00-0.02); LYMPH % 26.3 %; LYMPH ABS # 3.57 K/uL (1.2-3.4); MEAN CELL VOLUME 85.6 fL (80-100); MEAN CORPUSCULAR HEMOGLOBIN 27.7 pg (25-34); MEAN CORPUSCULAR HGB CONC 32.3 g/dl (32-36); MEAN PLATELET VOLUME 9.5 fL (7.4-10.4); MONO % 6.4 %; MONO ABS # 0.87 K/uL (0.11-0.59); NEUT % 62.7 %; NEUT ABS # 8.51 K/uL (1.4-6.5); PLATELET COUNT 356 K/uL (130-400); RED CELL DISTRIBUTION WIDTH SD 47.6 fL (36.4-46.3); WHITE BLOOD COUNT 13.58 K/uL (4.8-10.8)
== END | disposition home or self-care (01) ==
LOC: C.LABPVFM 09:44
PROVIDERS: ATTEND Nurse Practitioner
DX: R53.83 Other fatigue (principal); R19.7 Diarrhea, unspecified; Z78.9 Other specified health status

== ENCOUNTER → 2017-07-01 | Outpatient (CLI) | payer OTHER ==
--- NOTE | 2017-07-02 06:07 | PAP/PSG TECHNICIAN REPORT ---
[facility] Tearoom Hostess Polysomnogram Report Study name: None Report date: 07/02/2017 Study date: 07/01/2017 Referring Physician: Effie Mason Name: DARRYL DAVILA Interpreting Physician: Goldy Reyes M.D. Date of : 1980 Tearoom Hostess: DOLLY Erickson. Sex: Female Age: 37 StudyType: PSG Weight: 259.9 lbs Height: 37 years, Height 66" Neck Circum:14.25inches BMI: 41.94 Medications: Sertraline HCl 100mg, Lorazepam 1mg, Mupirocin 2% ointment, Omeprazole 20mg, Furosemide 20mg, Atenolol 50mg, Ketoconazole 2% cream, Vit D-3 2000unit, B12 500mcg, Iron 60mg Patient History Study started on room air with no ETCO2 monitoring in room #8. 37 yr old female here tonight for a diagnostic psg. She complains of EDS, anxiety and snoring. She gets migraines. She has sleep paralysis a few times a week. No witnessed apnea. She has sleep onset insomnia. Her ESS=19/24. Neck circ=14.25inches Parameters Monitored NPSG: E1-M2, E2-M1, Fp1-M2, Fp2-M1, F3-M2, F4-M2, F4-M1, C3-M2, C4-M2, C4-M1, O1-M2, O2-M2, O2-M1, T3-M2, T4-M1, P3-M2, P4-M1, CHIN1, CHIN2, HR, EKG, Legs, PFLOW, SNOR, FLOW, CFLOW, Tidal Volume, THOR, ABDO, SpO2, PLTH, CPRESS, ETCO2 Wave, ETCO2, pH Sleep Architecture Sleep Stages Time at Lights Off 9:51:19 PM STAGES Time (min.) TST (%) Time at Lights On 5:27:19 AM Wake 80.0 -- Total Recording Time (TRT) 456.00 min. N1 27.0 7 Total Sleep Period (TSP) 428.5 min. N2 260.0 69 Total Sleep Time (TST) 376.0min. N3 45.0 12 Awake Time 80.0 min. REM 44.0 12 Wake after Sleep Onset 53.0 min. Sleep Efficiency (SE) 82 % Sleep Onset Latency (SUZY) 27.0 min. Number of Stage 1 Shifts None Awakenings 17 Stage Changes 94 Number of REM periods 2 REM 44.0 12 REM Latency 125.0 min. NREM 332.0 88 Body Position Analysis Supine Right Left Side Prone Vertical Total Sleep Time (min.) 165.2 271.1 0.0 271.13 0.0 0.0 Total Sleep Time (%) 28% 72% 0% 72 0% N/A% Total Sleep Time REM (min.) 0.0 44.0 0.0 None 0.0 0.0 Total Sleep Time NREM (min.) 104.9 227.1 0.0 None 0.0 0.0 Intermittent Wake (min.) 60.3 19.7 0.0 None 0.0 0.0 Total Sleep Period (%) 33% None None None None None Arousals Myoclonus (PLM) * Events Count Index Events Count Index Spontaneous 14 2 Events Awake (PLMW) 112 84.0 Respiratory 2 0.3 Events Asleep w/ Arousal (PLMA) 29 4.6 PLM 28 5 Events Asleep w/o Arousal (PLMS) 129 20.6 Snoring 13 2 Total Asleep 158 25.2 Total 56 9 Total 270 36 Respiratory Analysis * CA OA MA CH H RERA Total Count 0 0 0 0 49 0 49 Index 0.0 0.0 0.0 0 7.8 0 7.8 Mean Duration 0.0 0.0 0.0 0.00 12.7 0.0 12.7 Longest Duration 0.0 0.0 0.0 0.00 0.0 0.0 21.6 Respiratory Event Summary Total Supine ~Supine Right Left Prone REM NREM Apneas Count 0 0 0 0 N/A N/A 0 0 Index 0.0 0 0 0.0 N/A N/A 0 0 Hypopneas (4% Desat) Count 49 35 14 14 N/A N/A 10 39 Index 7.8 20.0 3 3.1 N/A N/A 13.6 7.0 Apneas & All Hypopneas Count 49 35 14 14 N/A N/A 10 39 Index 7.8 20 3 3 N/A N/A 13.6 7.0 Respiratory Events (Program Manager Rn+All Hyp+RERA) Count 49 35 14 14 N/A N/A 10 39 Index 7.8 20 3 3.1 N/A N/A 13.6 7.0 Respiratory Related Arousal Count 2 35 0 0 N/A N/A 0 2 Index 0.3 1 0 0 N/A N/A 0 0 Snoring Analysis Supine Right Left Prone REM NREM Total Snore duration 11.5 min Snores count 516 57 N/A N/A 4 569 573 Snore mean duration 1.2 Sec Snores index 295 13 N/A N/A 5.5 102.8 91.4 TST with snoring (%) 3.1% Desaturation Event Summary: Minimum %SpO2 Event Count Mean/Min/Max Duration(sec.) Desaturation Index % Time In Bed > 90 74 17.5 / 5.0 / 60.0 11.2 88.5 86 - 90 0 N/A 0.0 11.5 81 - 85 0 N/A 0.0 0.0 76 - 80 0 N/A 0.0 0.0 71 - 75 0 N/A 0.0 0.0 66 - 70 0 N/A 0.0 0.0 61 - 65 0 N/A 0.0 0.0 56 - 60 0 N/A 0.0 0.0 51 - 55 0 N/A 0.0 0.0 < 50 0 N/A 0.0 0.0 Total REM NREM Awake <50% 0.0 min. 0.0 min. 0.0 min. 0.0 min. 51 - 60% 0.0 min. 0.0 min. 0.0 min. 0.0 min. 61 - 70% 0.0 min. 0.0 min. 0.0 min. 0.0 min. 71 - 80% 0.0 min. 0.0 min. 0.0 min. 0.0 min. 81 - 90% 51.5 min. 1.7 min. 35.1 min. 14.8 min. 91 - 100% 396.8 min. 42.3 min. 296.9 min. 57.6 min. Average 92 93 92 92 Minimum SpO2 85 88 85 88 Desaturation Event Index 9.7 15.0 10.1 5.3 # Desat. Events below 89% 15 1 14 N/A Time(%) with Saturation below 89% 0.4 0.0 0.3 0.1 Time(min.) with Saturation below 89% 1.9 0.1 1.4 0.4 Time (mins) REM (mins) NREM (mins) % of TST SpO2 Below 90% 53 9 N44 2.9 SpO2 Below 88% 3 0 0 0 Heart Rate Analysis Min (bpm) Max (bpm) Average (bpm) Awake 40 95 81 NREM 58 93 78 REM 65 93 79 Overall 58 93 78 Supplemental O2 Values Minimum O2 level: None Value Start Time End Time Tearoom Hostess Comments Ms. Davila slept in the right and supine positions. Cardiac arrhythmia and some leg movements were noted, please see print outs. No bruxism noted. Snoring was noted and scored as a 3 on a scale of 1 through 5. (0=no snoring, 5=snoring loud enough to be heard through a closed door or down the [address] way). Her respiration rate was about 28 breaths/minute (sometimes higher). She awoke to use the restroom 1 time during the night. She stated that she slept about the same as when she is at home. The final report will be interpreted and signed by a sleep physician. The completed physician report will then be placed in the patient medical record. Therapy (cm H2O) 0 TIB (min.) 456.0 TST (min.) 376.0 Sleep Onset (min.) 27.0 REM Onset From Sleep (min.) 125.0 Sleep Efficiency % 82 Wakefulness (%) 18 Wakefulness (min.) 80.0 NREM 1 (%) 7 NREM 1 (min.) 27.0 NREM 2 (%) 69 NREM 2 (min.) 260.0 NREM 3 (%) 12 NREM 3 (min.) 45.0 REM (%) 12 REM (min.) 44.0 # Arousals 56 Arousal Index 9 # Snore 573 Snore Index 91.4 AHI 7.8 AHI Supine 20 AHI Non-Supine 3 NREM AHI 7.0 REM AHI 13.6 RDI 7.8 # Obstructive Apnea 0 # Central Apnea 0 # Mixed Apnea 0 # Hypopneas 49 RERAs 0 Total Respiratory Events 49 Time Below SpO2 89% (min.) 1.5 Mean NREM SpO2 (%) 92 Mean REM SpO2 (%) 93 Mean Sleep SpO2 (%) 92 Min NREM SpO2 (%) 85 Min REM SpO2 (%) 88 Position Supine (min.) 165.2 Position Non-supine (min.) 271.1 LM Index Sleep 25.2 LM Index NREM 26.0 LM Index REM 19.1 Mean Heart Rate (bpm) 78 Min Heart Rate (bpm) 58
--- NOTE | 2017-07-04 17:12 | POLYSOMNOGRAPH REPORT ---
CLINICAL DATA: A 37-year-old female with BMI of 41.94 referred by Esmer Mason for complaints of excessive daytime sleepiness, snoring, anxiety, occasional sleep paralysis, and insomnia. SLEEP ARCHITECTURE: Total sleep period was 428.5 minutes. Total sleep time was 376 minutes divided between 332 minutes of non-REM sleep and 44 minutes of REM sleep. Sleep latency was 27 minutes. REM latency was 125 minutes. Sleep efficiency was 82%. Wake after sleep onset was 53 minutes. Sleep consisted of stage N1 7%, stage N2 69%, stage N3 12%, and REM 12%. AROUSAL DATA: 56 arousals were recorded for an index of 9 per hour. 28 were due to PLMs events. PLM DATA: Mildly elevated limb movements during sleep were noted. There were 158 limb movements during sleep noted for an index of 25.2 per hour with arousal index of 4.6 per hour. RESPIRATORY DATA: Very mild sleep apnea/hypopnea was seen. The AHI was 7.8. There were no apneic episodes seen. There were 48 hypopneic episodes with a mean duration of 12.7 seconds. OXIMETRY DATA: Transient hypoxemia was seen. Oxygen bridgett was 85% during non-REM sleep, mean saturation was 92%. Time below 88% was 3 minutes. EKG: Heart rates ranged from 58-93 beats per minute. SCIENTIFIC RECRUITER'S COMMENTS: The patient slept in the right and supine position. Snoring was moderate, rated 3 on a scale of 1-5. IMPRESSION: Mild sleep apnea/hypopnea with an AHI (apnea-hypopnea index) of 7.8 without significant nocturnal hypoxemia. RECOMMENDATIONS: The patient may benefit from weight loss, use of an oral appliance, use of CPAP, or sleep medicine consultation. Clinical correlation is needed. MIKO
== END | disposition home or self-care (01) ==
LOC: C.NEUR 20:00
PROVIDERS: ATTEND Nurse Practitioner
DX: G47.19 Other hypersomnia (principal); R06.83 Snoring; Z88.0 Allergy status to penicillin; Z88.1 Allergy status to other antibiotic agents; Z88.8 Allergy status to other drugs, medicaments and biological substances; Z91.040 Latex allergy status

== ENCOUNTER → 2017-09-14 | Outpatient (CLI) | payer OTHER | END | disposition home or self-care (01) | LOC: C.LABPVFM 14:05 | PROVIDERS: ATTEND Nurse Practitioner | DX: R39.9 Unspecified symptoms and signs involving the genitourinary system (principal) ==